=== PATIENT | female | born 1970 | race African-American/Black ===

== ENCOUNTER 2020-06-16 07:26 | Outpatient (RCR) | payer BC, SELFPAY ==
[2020-06-16] MEDS: COVID-19 VACC, MRNA(PFIZER)/PF 30 MCG/0.3 ML SYRINGE IM (11:59)
[2020-07-07] MEDS: COVID-19 VACC, MRNA(PFIZER)/PF 30 MCG/0.3 ML SYRINGE IM (12:00)
== END 2020-08-03 23:59 ==
LOC: IMMUN 07:26
PROVIDERS: Referring Provider Family Medicine; Visit Provider Family Medicine
DX: Z23 Encounter for immunization (principal)
CPT/HCPCS: 0001A; 0002A; 91300